=== PATIENT | female | born 1950 | race Caucasian/White ===

== ENCOUNTER 2017-10-18 10:00 | Emergency (ER) | payer MEDICARE, OTHER | END 2017-10-18 13:27 | disposition home or self-care (01) | LOC: FTE 10:00 | DX: J06.9 Acute upper respiratory infection, unspecified (principal); I10 Essential (primary) hypertension; E11.9 Type 2 diabetes mellitus without complications; Z79.84 Long term (current) use of oral hypoglycemic drugs; Z87.891 Personal history of nicotine dependence | CPT/HCPCS: 99283 ==

== ENCOUNTER 2018-06-19 10:01 | Emergency (ER) | payer MEDICARE, OTHER ==
[2018-06-19] MEDS: DEXAMETHASONE 4 MG TAB PO (10:27)
== END 2018-06-19 10:58 | disposition home or self-care (01) ==
LOC: FTE 10:01
DX: R21 Rash and other nonspecific skin eruption (principal); I10 Essential (primary) hypertension; E11.9 Type 2 diabetes mellitus without complications; Z87.891 Personal history of nicotine dependence; Z79.84 Long term (current) use of oral hypoglycemic drugs
CPT/HCPCS: 99283